=== PATIENT | female | born 1995 | race Caucasian/White ===

== ENCOUNTER 2018-12-06 03:19 | Emergency (ER) | payer OTHER ==
[2018-12-06] MEDS ORDERED: MAG HYDROX/AL HYDROX/SIMETH 30 ML, HYOSCYAMINE ELIXIR 10 ML, CIMETIDINE HCL 300 MG, LID... PO STA ×4 (03:47)
--- NOTE | 2018-12-06 03:52 | ED ---
Abdominal Pain HPI - General Source: patient Mode of arrival: ambulatory Limitations: no limitations - History of Present Illness MD Complaint: abdominal pain Onset/Timin -: hour(s) Location: epigastric Radiation: none Migration to: no migration Severity: moderate Quality: burning Consistency: constant Improves With: nothing Worsens With: nothing Associated Symptoms: denies other symptoms - Related Data LMP (females 10-50): 1 month Patient : No <Aristides Mckeon - Last Filed: 12/06/18 05:01> <Gideon Kumar - Last Filed: 12/06/18 08:08> - General Chief Complaint: Abdominal Pain Stated Complaint: abd pain Time Seen by Provider: 12/06/18 03:28 - History of Present Illness Initial Comments: This patient is 23-year-old woman who presents to be evaluated for upper abdominal pain. She states that it came on around 10 PM. She describes as a burning, constant type of pain. She has not noted worsening or relieving fact ors. She rates it moderate intensity. Patient does note that she had some apple cider vinegar to drink around 7 PM. Patient does note that she had a little bit of nausea and so she tried inducing emesis. After vomiting she had not noted any real change in how she felt. (Aristides Mckeon) - Related Data Home Medications Medication Instructions Recorded Confirmed No Known Home Medications 12/06/18 12/06/18 Allergies Allergy/AdvReac Type Severity Reaction Status Date / Time No Known Allergies Allergy Verified 12/06/18 03:29 Review of Systems ROS Other: All systems not noted in ROS Statement are negative. Constitutional: Denies: fever, chills Respiratory: Denies: cough, dyspnea Cardiovascular: Denies: chest pain, palpitations, edema Gastrointestinal: Reports: abdominal pain. Denies: nausea, vomiting, diarrhea, constipation, melena, hematochezia Genitourinary: Denies: dysuria, hematuria, abnormal menses Musculoskeletal: Denies: back pain Skin: Denies: rash Neurological: Denies: headache <Aristides Mckeon - Last Filed: 12/06/18 05:01> ROS Other: All systems not noted in ROS Statement are negative. <Gideon Kumar - Last Filed: 12/06/18 08:08> ROS Statement: Those systems with pertinent positive or pertinent negative responses have been documented in the HPI. Past Medical History Past Medical History: No Reported History History of Any Multi-Drug Resistant Organisms: None Reported Past Surgical History: No Surgical Hx Reported Past Psychological History: No Psychological Hx Reported Smoking Status: Current some day smoker Past Alcohol Use History: Occasional Past Drug Use History: None Reported <Aristides Mckeon - Last Filed: 12/06/18 05:01> General Exam Limitations: no limitations General appearance: alert, in no apparent distress Head exam: Present: atraumatic, normocephalic Eye exam: Present: normal appearance. Absent: scleral icterus, conjunctival injection ENT exam: Present: normal oropharynx Neck exam: Present: normal inspection Respiratory exam: Present: normal lung sounds bilaterally. Absent: respiratory distress, wheezes, rales, rhonchi, stridor Cardiovascular Exam: Present: regular rate, normal rhythm, normal heart sounds. Absent: systolic murmur, diastolic murmur, rubs, gallop GI/Abdominal exam: Present: soft, normal bowel sounds. Absent: distended, tenderness, guarding, rebound, rigid, mass, pulsatile mass, hernia Extremities exam: Present: normal inspection, normal capillary refill. Absent: pedal edema, calf tenderness Back exam: Present: normal inspection. Absent: CVA tenderness (R), CVA tenderness (L) Neurological exam: Present: alert Skin exam: Present: warm, dry, intact, normal color. Absent: rash <Aristides Mckeon - Last Filed: 12/06/18 05:01> Course Vital Signs 12/06/18 12/06/18 12/06/18 03:25 05:19 07:06 Temperature 98.0 F 97.8 F 98.3 F Pulse Rate 88 100 88 Respiratory 20 18 18 Rate Blood Pressure 115/77 92/65 117/78 O2 Sat by Pulse 99 100 100 Oximetry Medical Decision Making - Lab Data Result diagrams: 12/06/18 04:03 12/06/18 04:03 <Aristides Mckeon - Last Filed: 12/06/18 05:01> - Lab Data Result diagrams: 12/06/18 04:03 12/06/18 04:03 <Gideon Kumar - Last Filed: 12/06/18 08:08> - Medical Decision Making I will back into the room to reevaluate the patient she was sleeping woke her up I repalpated her abdomen I found no area of tenderness. Patient states she started having pain after she drank some apple cider vinegar and followed that with a glass of wine last night. (Gideon Kumar) - Lab Data Lab Results 12/06/18 12/06/18 12/06/18 Range/Units 03:47 03:47 04:03 WBC (3.8-10.6) k/uL RBC (3.80-5.40) m/uL Hgb (11.4-16.0) gm/dL Hct (34.0-46.0) % MCV (80.0-100.0) fL MCH (25.0-35.0) pg MCHC (31.0-37.0) g/dL RDW (11.5-15.5) % Plt Count (150-450) k/uL Neutrophils % % Lymphocytes % % Monocytes % % Eosinophils % % Basophils % % Neutrophils # (1.3-7.7) k/uL Lymphocytes # (1.0-4.8) k/uL Monocytes # (0-1.0) k/uL Eosinophils # (0-0.7) k/uL Basophils # (0-0.2) k/uL Sodium 136 L (137-145) mmol/L Potassium 4.2 (3.5-5.1) mmol/L Chloride 102 (98-107) mmol/L Carbon Dioxide 26 (22-30) mmol/L Anion Gap 8 mmol/L BUN 12 (7-17) mg/dL Creatinine 0.47 L (0.52-1.04) mg/dL Est GFR (CKD-EPI)AfAm >90 (>60 ml/min/1.73 sqM) Est GFR (CKD-EPI)NonAf >90 (>60 ml/min/1.73 sqM) Glucose 116 H (74-99) mg/dL Calcium 9.7 (8.4-10.2) mg/dL Total Bilirubin 0.5 (0.2-1.3) mg/dL AST 35 (14-36) U/L ALT 40 (9-52) U/L Alkaline Phosphatase 65 (38-126) U/L Total Protein 7.3 (6.3-8.2) g/dL Albumin 4.5 (3.5-5.0) g/dL Amylase 56 (30-110) U/L Lipase 46 (23-300) U/L Urine Color Yellow Urine Appearance Turbid H (Clear) Urine pH 7.5 (5.0-8.0) Ur Specific [place] 1.020 (1.001-1.035) Urine Protein Negative (Negative) Urine Glucose (UA) Negative (Negative) Urine Ketones 1+ H (Negative) Urine Blood Negative (Negative) Urine Nitrite Negative (Negative) Urine Bilirubin Negative (Negative) Urine Urobilinogen <2.0 (<2.0) mg/dL Ur Leukocyte Esterase Moderate H (Negative) Urine WBC 6 H (0-5) /hpf Ur Squamous Epith Cells 7 H (0-4) /hpf Amorphous Sediment Rare H (None) /hpf Urine Bacteria Occasional H (None) /hpf Urine Mucus Rare H (None) /hpf Urine HCG, Qual Not Detected (Not Detectd) 12/06/18 Range/Units 04:03 WBC 10.6 (3.8-10.6) k/uL RBC 4.36 (3.80-5.40) m/uL Hgb 13.6 (11.4-16.0) gm/dL Hct 39.9 (34.0-46.0) % MCV 91.5 (80.0-100.0) fL MCH 31.1 (25.0-35.0) pg MCHC 34.0 (31.0-37.0) g/dL RDW 12.4 (11.5-15.5) % Plt Count 232 (150-450) k/uL Neutrophils % 82 % Lymphocytes % 14 % Monocytes % 3 % Eosinophils % 0 % Basophils % 0 % Neutrophils # 8.6 H (1.3-7.7) k/uL Lymphocytes # 1.5 (1.0-4.8) k/uL Monocytes # 0.3 (0-1.0) k/uL Eosinophils # 0.0 (0-0.7) k/uL Basophils # 0.0 (0-0.2) k/uL Sodium (137-145) mmol/L Potassium (3.5-5.1) mmol/L Chloride (98-107) mmol/L Carbon Dioxide (22-30) mmol/L Anion Gap mmol/L BUN (7-17) mg/dL Creatinine (0.52-1.04) mg/dL Est GFR (CKD-EPI)AfAm (>60 ml/min/1.73 sqM) Est GFR (CKD-EPI)NonAf (>60 ml/min/1.73 sqM) Glucose (74-99) mg/dL Calcium (8.4-10.2) mg/dL Total Bilirubin (0.2-1.3) mg/dL AST (14-36) U/L ALT (9-52) U/L Alkaline Phosphatase (38-126) U/L Total Protein (6.3-8.2) g/dL Albumin (3.5-5.0) g/dL Amylase (30-110) U/L Lipase (23-300) U/L Urine Color Urine Appearance (Clear) Urine pH (5.0-8.0) Ur Specific [place] (1.001-1.035) Urine Protein (Negative) Urine Glucose (UA) (Negative) Urine Ketones (Negative) Urine Blood (Negative) Urine Nitrite (Negative) Urine Bilirubin (Negative) Urine Urobilinogen (<2.0) mg/dL Ur Leukocyte Esterase (Negative) Urine WBC (0-5) /hpf Ur Squamous Epith Cells (0-4) /hpf Amorphous Sediment (None) /hpf Urine Bacteria (None) /hpf Urine Mucus (None) /hpf Urine HCG, Qual (Not Detectd) Disposition <Aristides Mckeon - Last Filed: 12/06/18 05:01> Is patient prescribed a controlled substance at d/c from ED?: No Time of Disposition: 08:08 <Gideon Kumar - Last Filed: 12/06/18 08:08> Clinical Impression: Gastritis Disposition: HOME SELF-CARE Condition: Good Instructions (If sedation given, give patient instructions): Gastritis (ED) Additional Instructions: If patient has continued upset stomach she should try some Maalox or possibly Pepcid but neither medication follow-up with her primary medical care doctor. Referrals: Felix Lackey DO [Primary Care Provider] - 1-2 days
[2018-12-06 03:59] LABS: Amorphous Sediment,Urine Rare /hpf; Appearance,Urine Turbid (Clear); Bacteria,Urine Occasional /hpf; Bilirubin,Urine Negative (Negative); Blood,Urine Negative (Negative); Color,Urine Yellow; Glucose,Urine (UA) Negative (Negative); Ketones,Urine 1+ (Negative); Leukocyte Esterase,Urine Moderate (Negative); Mucus,Urine Rare /hpf; Nitrite,Urine Negative (Negative); PH, Urine 7.5 (5.0-8.0); Protein,Urine Negative (Negative); Squamous Epithelial Cell,Urine 7 /hpf (0-4); Urobilinogen,Urine <2.0 mg/dL (<2.0); WBC,Urine 6 /hpf (0-5)
[2018-12-06 04:16] LABS: Basophils % (A) 0 %; Eosinophils % (A) 0 %; HCT 39.9 % (34.0-46.0); HGB 13.6 gm/dL (11.4-16.0); Lymphocytes # (A) 1.5 k/uL (1.0-4.8); Lymphocytes % (A) 14 %; MCH 31.1 pg (25.0-35.0); MCV 91.5 fL (80.0-100.0); Mean Platelet Volume 6.3; Monocytes # (A) 0.3 k/uL (0-1.0); Monocytes % (A) 3 %; Neutrophils # (A) 8.6 k/uL (1.3-7.7); Neutrophils % (A) 82 %; Platelet Count 232 k/uL (150-450); RBC 4.36 m/uL (3.80-5.40); RDW 12.4 % (11.5-15.5); WBC 10.6 k/uL (3.8-10.6)
[2018-12-06 04:29] LABS: Albumin 4.5 g/dL (3.5-5.0); Amylase 56 U/L (30-110); Chloride 102 mmol/L (98-107); Glucose 116 mg/dL (74-99); Total Protein 7.3 g/dL (6.3-8.2)
[2018-12-06 04:30] LABS: ALT 40 U/L (9-52); AST 35 U/L (14-36); African American GFR (CKD) >90 (>60 ml/min/1.73 sqM); Alkaline Phosphatase 65 U/L (38-126); Anion Gap 8 mmol/L; Blood Urea Nitrogen 12 mg/dL (7-17); Calcium 9.7 mg/dL (8.4-10.2); Carbon Dioxide 26 mmol/L (22-30); Potassium 4.2 mmol/L (3.5-5.1); Sodium 136 mmol/L (137-145); Total Bilirubin 0.5 mg/dL (0.2-1.3)
[2018-12-06] MEDS ORDERED: ONDANSETRON 4 MG/2 ML VIAL IVP STA (05:03)
[2018-12-06] MEDS ORDERED: SODIUM CHLORIDE 0.9% 500 ML 500 ML IV STA (05:03)
[2018-12-06] MEDS ORDERED: FAMOTIDINE 20 MG/2 ML VIAL IV STA (05:03)
[2018-12-06 05:21] VITALS: RESP 18
[2018-12-06] MEDS ORDERED: MORPHINE SULFATE 4 MG/ML SYRINGE IV STA (05:54)
--- NOTE | 2018-12-06 07:53 | CT ---
INDICATION: Abdominal pain TECHNIQUE: CT acquisition is performed through the abdomen and pelvis. Sagittal and coronal reformatted images are provided. No IV contrast is administered. DOSE INFORMATION: DLP 332.9 mGy-cm. This CT exam was performed using one or more of the following dose reduction techniques: automated exposure control, adjustment of the mA and/or kV according to patient size, and/or use of iterative reconstruction technique. COMPARISON: None. FINDINGS: The lung bases are clear. The unenhanced appearance of the liver, gallbladder, spleen, pancreas, and adrenal glands is unremarkable. The appendix is mildly enlarged measuring 7.5 mm (series 201, image 58). There are no significant periappendiceal inflammatory changes. There is no evidence of small or large bowel obstruction. Aorta and IVC are normal. There is no adenopathy. The urinary bladder and uterus are unremarkable. There is mild free pelvic fluid, most likely physiologic. There are no acute osseous findings. IMPRESSION: 1. Mildly enlarged appendix measuring 7.5 mm without significant periappendiceal fat stranding. Acute appendicitis is considered unlikely based on this appearance. However, in the appropriate clinical setting, early acute appendicitis is not excluded. 2. Mild free pelvic fluid, likely physiologic. <MYCVCSECTION> Critical Value Communications 12/06/18 07:55 Call Doctor Regarding Other, called Dr. uKmar on 12/06 07: 58 (-04:00)
[2018-12-06 08:21] VITALS: BP 116/79; PULSE 72; TEMP 98.8
== END 2018-12-06 08:19 | disposition home or self-care (01) ==
LOC: EC 03:19
DX: K29.70 Gastritis, unspecified, without bleeding (principal); F17.200 Nicotine dependence, unspecified, uncomplicated
CPT/HCPCS: 99284; 96374; 96375 ×2; 36415; 80053; 82150; 83690; 85025; 81001; 81025; 74176; J2270; J2405

== ENCOUNTER 2019-08-19 19:20 | Inpatient (IN) | payer OTHER ==
[2019-08-19] MEDS ORDERED: OXYTOCIN 10 UNIT/ML 1 ML VIAL IM PRN (20:28)
[2019-08-19] MEDS ORDERED: LIDOCAINE 0.5% (PF) 5 MG/ML (50 ML SDV) SQ PRN (20:28)
[2019-08-19] MEDS ORDERED: PENICILLIN G POTASSIUM 5,000,000 UNIT in DEXTROSE 5% IN WATER 100 ML IVPB STA ×2 (20:28)
[2019-08-19] MEDS ORDERED: CARBOPROST TROMETHAMINE 250 MCG/ML 1 ML AMP IM PRN (20:28)
[2019-08-19] MEDS ORDERED: TERBUTALINE 1 MG/ML VIAL SQ PRN (20:28)
[2019-08-19] MEDS ORDERED: METHYLERGONOVINE 0.2 MG/ML 1 ML AMP IM PRN (20:28)
[2019-08-19] MEDS: LACTATED RINGERS 1,000 ML IV SCH (20:55)
--- NOTE | 2019-08-19 21:36 | P.HPOB ---
History of Present Illness H&P Date: 08/19/19 Chief Complaint: My water broke at 5:00 tonight. This is a 23-year-old white female 1 para 0 EDC 08/28/2019 at 38-5/7 weeks' gestation. Patient presents to labor and delivery with the complaint of her water breaking at 5 PM. Fluid was clear. She is having very mild irregular menstrual type cramping at this time. She denies vaginal bleeding. Fetus is been active throughout the . Past medical history is significant for positive HSV, on Valtrex daily. She denies any lesions or prodrome at this time. She also has a history of psoriasis. history is significant for blood type A+, rubella status immune. Gonorrhea and chlamydia cultures, urine culture, hepatitis B surface antigen, HIV testing all negative. One-hour Glucola 138. Group B strep cultures positive. Past surgical history is negative. Current medications vitamins daily, Valtrex 500 mg daily ALLERGIES none known. Family history significant for cervical cancer. Social history patient is single, she is a former tobacco and 18 smoker. She denies alcohol or drug use. On exam patient is 5 foot, 160 pounds, blood pressure 125/88. Vital signs are otherwise stable and she is afebrile. The general physical exam is within normal limits. The chest is clear in all ferrer. Extremities reveal no edema. Cervix is 1 cm dilated, 90% effaced, -2 station, posterior, vertex. Positive amnio sure testing is noted. heart rate is consistent with reactive NST. Impression: 38-5/7 weeks intrauterine , spontaneous amniorrhexis at home. All signs reassuring. History of positive HSV with no prodrome or lesions at this time. Positive group B strep cultures noted. Impression: Continue close maternal and surveillance. Penicillin G prophylaxis per hospital protocol. Consider oxytocin augmentation and/or analgesia pending clinical progress. Anticipate normal spontaneous vaginal delivery. Review of Systems Constitutional: Reports as per HPI Past Medical History Past Medical History: No Reported History History of Any Multi-Drug Resistant Organisms: None Reported Past Surgical History: No Surgical Hx Reported Past Anesthesia/Blood Transfusion Reactions: No Reported Reaction Past Psychological History: No Psychological Hx Reported Smoking Status: Never smoker Past Alcohol Use History: Occasional Past Drug Use History: None Reported Medications and Allergies Home Medications Medication Instructions Recorded Confirmed Type Fluconazole [Diflucan] 150 mg ONCE 08/19/19 08/19/19 History Pnv No.95/Ferrous Fum/Folic AC 1 each PO DAILY 08/19/19 08/19/19 History [ Multivitamin Tablet] valACYclovir HCL [Valtrex] 500 mg PO DAILY 08/19/19 08/19/19 History Allergies Allergy/AdvReac Type Severity Reaction Status Date / Time No Known Allergies Allergy Verified 08/19/19 19:34 Exam Vital Signs Temp Pulse Resp BP Pulse Ox 08/19/19 20:00 97.9 F 84 15 125/88 98 Intake and Output 08/19/19 08/19/19 08/19/19 06:59 14:59 22:59 Intake Total 125 Balance 125 Intake: IV 125 Other: # Voids 1 Weight 72.575 kg See dictation under HPI please Assessment and Plan Assessment: 38-5/7 weeks intrauterine , spontaneous amniorrhexis at home. Positive group B strep cultures noted. History of HSV with no current lesions or prodrome, on Valtrex prophylactically once daily. Plan: Penicillin G per hospital protocol. Consider oxytocin and or analgesia pending clinical progress through the night. Anticipate normal spontaneous vaginal delivery. Time with Patient: Less than 30
[2019-08-19 23:04] LABS: Basophils % (A) 0 %; Eosinophils # (A) 0.1 k/uL (0-0.7); Eosinophils % (A) 1 %; HCT 36.7 % (34.0-46.0); HGB 12.2 gm/dL (11.4-16.0); Lymphocytes # (A) 3.2 k/uL (1.0-4.8); Lymphocytes % (A) 24 %; MCH 30.8 pg (25.0-35.0); MCHC 33.2 g/dL (31.0-37.0); MCV 92.9 fL (80.0-100.0); Mean Platelet Volume 9.7; Monocytes # (A) 0.8 k/uL (0-1.0); Monocytes % (A) 6 %; Neutrophils # (A) 8.8 k/uL (1.3-7.7); Neutrophils % (A) 67 %; Platelet Count 197 k/uL (150-450); RBC 3.95 m/uL (3.80-5.40); RDW 13.5 % (11.5-15.5); WBC 13.2 k/uL (3.8-10.6)
[2019-08-20] MEDS: PENICILLIN G POTASSIUM 2,500,000 UNIT in DEXTROSE 5% IN WATER 100 ML IVPB SCH ×8 (00:39→16:21)
[2019-08-20] MEDS: BUTORPHANOL 1 MG/ML 1 ML VIAL IV PRN ×2 (00:45→03:16)
[2019-08-20] MEDS: LACTATED RINGERS 1,000 ML IV SCH ×2 (04:51→06:29)
[2019-08-20] MEDS ORDERED: fentaNYL (PF) 50 MCG/ML 5 ML AMP ONE (05:50)
[2019-08-20] MEDS ORDERED: SODIUM CHLORIDE 0.9% 100 ML BAG ONE (05:50)
[2019-08-20] MEDS ORDERED: ROPIVACAINE 5MG/ML 20ML VIAL ONE (05:50)
[2019-08-20] MEDS ORDERED: OXYTOCIN 30 UNITS/500 ML NS 30 UNIT in SALINE 1 500ML.BAG IV SCH (07:15)
[2019-08-20] MEDS ORDERED: diphenhydrAMINE 50 MG/ML 1 ML VIAL IVP PRN ×2 (13:22)
[2019-08-20] MEDS ORDERED: SIMETHICONE 80 MG CHEWABLE PO PRN (13:22)
[2019-08-20] MEDS ORDERED: diphenhydrAMINE 25 MG CAP PO PRN (13:22)
[2019-08-20] MEDS ORDERED: ZOLPIDEM 5 MG TAB PO PRN (13:22)
[2019-08-20] MEDS ORDERED: LANOLIN CREAM 5 GM TUBE TOPICAL PRN (13:22)
[2019-08-20] MEDS ORDERED: ACETAMINOPHEN TAB 325 MG TAB PO PRN (13:22)
[2019-08-20] MEDS ORDERED: diphenhydrAMINE 50 MG CAP PO PRN (13:22)
[2019-08-20] MEDS ORDERED: BENZOCAINE/MENTHOL SPRAY 1 GM/SPRAY AEROSOL TOPICAL PRN (13:22)
[2019-08-20] MEDS ORDERED: HYDROcodone/APAP 5-325MG 1 EACH TAB PO PRN (13:22)
[2019-08-20] MEDS ORDERED: HYDROCORTISONE 2.5% RECTAL CREAM 30 GM TUBE RECTAL PRN (13:22)
[2019-08-20] MEDS ORDERED: WITCH HAZEL 1 EACH MED..PAD TOPICAL PRN (13:22)
--- NOTE | 2019-08-20 13:25 | P.PROBDLV ---
Vaginal Delivery Note - . Vaginal Delivery Note: This is a 23-year-old 1 para 0 at 38-6/7 weeks that presented to labor and delivery last evening with complaints of rupture of membranes around 1700. Patient stated fluid was clear in nature. Patient was admitted to labor and delivery irregular contractions were noted therefore Pitocin augmentation of labor was begun this morning. Patient was uncomfortable at that time and also requested epidural placement. Epidural was placed without difficulty by the a nesthesia department. Patient progressed to complete and had a normal spontaneous vaginal delivery of a viable male infant at 1300, right compound hand was noted. After two-minute delayed the umbo cord was doubly clamped and cut infant was handed to the maternal abdomen. The placenta was then delivered spontaneously intact with three-vessel cord being noted. On inspection the patient's vaginal vault a midline second-degree laceration was noted this was repaired in usual fashion with 3-0 Rapide. Rectal exam was performed after the repair was completed and found to be normal in nature. The uterus was noted to be firm and below the umbilicus, lochia was minimal at that time. Estimated blood loss 200 mL patient and tolerated delivery well and are resting comfortably.
[2019-08-20] MEDS ORDERED: OXYTOCIN 20 UNITS/1000 ML NS 1,000 ML IV SCH (13:30)
[2019-08-20] MEDS: IBUPROFEN 600 MG TAB PO PRN ×2 (15:14→21:02)
[2019-08-20] MEDS: SENNOSIDES-DOCUSATE SODIUM 1 EACH TAB PO SCH (20:29)
[2019-08-21] MEDS: IBUPROFEN 600 MG TAB PO PRN ×4 (03:55→17:10)
[2019-08-21 06:01] LABS: Basophils % (A) 0 %; Eosinophils # (A) 0.1 k/uL (0-0.7); Eosinophils % (A) 0 %; HCT 29.4 % (34.0-46.0); Lymphocytes # (A) 3.1 k/uL (1.0-4.8); Lymphocytes % (A) 19 %; MCH 31.8 pg (25.0-35.0); MCHC 33.5 g/dL (31.0-37.0); MCV 94.8 fL (80.0-100.0); Mean Platelet Volume 9.1; Monocytes # (A) 0.7 k/uL (0-1.0); Monocytes % (A) 4 %; Neutrophils # (A) 12.3 k/uL (1.3-7.7); Neutrophils % (A) 75 %; Platelet Count 166 k/uL (150-450); RBC 3.11 m/uL (3.80-5.40); RDW 14.1 % (11.5-15.5); WBC 16.4 k/uL (3.8-10.6)
[2019-08-21 06:03] LABS: HGB 9.9 gm/dL (11.4-16.0)
--- NOTE | 2019-08-21 08:16 | P.PNOBGVD ---
Subjective - Subjective Principal diagnosis: PPD 1 Interval history: Patient did well overnight. She is ambulating and voiding without difficulty. She is tolerating a regular diet without nausea or vomiting. She is breast- feeding with some difficulty. She states her lochia is moderate. She notes her pain to be well-controlled with oral ibuprofen. Patient reports: Reports appetite normal, Reports voiding normally, Reports pain well controlled, Reports ambulating normally : doing well, nursing well Objective - Latest Vital Signs Latest vital signs: Vital Signs Temp Pulse Pulse Resp BP Pulse Ox 08/21/19 00:00 98.5 F 87 18 123/79 97 08/20/19 20:00 99.1 F 91 18 138/80 98 08/20/19 15:10 87 16 120/77 08/20/19 14:40 98.0 F 86 16 122/66 08/20/19 14:10 16 08/20/19 13:55 89 16 140/69 08/20/19 13:40 95 16 109/72 08/20/19 13:25 97.8 F 99 16 123/58 08/20/19 13:10 93 16 140/69 Intake and Output 08/20/19 08/21/19 08/21/19 22:59 06:59 14:59 Output Total 200 Balance -200 Output: Estimated Blood Loss 200 Other: # Voids 1 2 - Exam Extremities: Present: normal, edema Abdomen: Present: normal appearance - Labs Labs: Abnormal Lab Results - Last 24 Hours (Table) 08/21/19 Range/Units 05:18 WBC 16.4 H (3.8-10.6) k/uL RBC 3.11 L (3.80-5.40) m/uL Hgb 9.9 L D (11.4-16.0) gm/dL Hct 29.4 L (34.0-46.0) % Neutrophils # 12.3 H (1.3-7.7) k/uL Assessment and Plan (1) Term Current Visit: Yes Status: Acute Code(s): Z34.90 - ENCNTR FOR SUPRVSN OF NORMAL , UNSP, UNSP TRIMESTER SNOMED Code(s): 13049412 (2) Positive GBS test Current Visit: Yes Status: Acute Code(s): B95.1 - STREPTOCOCCUS, GROUP B, CAUSING DISEASES CLASSD ELSWHR SNOMED Code(s): 429301290 (3) Status post vaginal delivery Current Visit: Yes Status: Acute Code(s): UPM1321 - SNOMED Code(s): 300692241 (4) Second degree perineal laceration Current Visit: Yes Status: Acute Code(s): O70.1 - SECOND DEGREE PERINEAL LACERATION DURING DELIVERY SNOMED Code(s): 6477650 (5) Prolonged rupture of membranes Current Visit: Yes Status: Acute Code(s): O42.90 - TREVER ROM, 7TH0 BETW RUPT & ONST LABR, UNSP WEEKS OF GEST SNOMED Code(s): 18294248 (6) Anemia Narrative/Plan: gestational Current Visit: Yes Status: Acute Code(s): D64.9 - ANEMIA, UNSPECIFIED SNOMED Code(s): 577904296 Plan: We'll continue routine care today, anticipate discharge home tomorrow.
[2019-08-21] MEDS: SENNOSIDES-DOCUSATE SODIUM 1 EACH TAB PO SCH ×2 (09:51→20:11)
[2019-08-21] MEDS: PRENATAL VIT-IRON-FOLIC ACID 1 EACH CAP PO SCH (10:00)
[2019-08-22] MEDS: IBUPROFEN 600 MG TAB PO PRN ×2 (00:10→07:52)
--- NOTE | 2019-08-22 08:22 | P.DS ---
Providers Date of admission: 08/19/19 20:11 Expected date of discharge: 08/22/19 Attending physician: Doris Bustamante Primary care physician: Stated None - Discharge Diagnosis(es) (1) Term Current Visit: Yes Status: Acute (2) Positive GBS test Current Visit: Yes Status: Acute (3) Status post vaginal delivery Current Visit: Yes Status: Acute (4) Second degree perineal laceration Current Visit: Yes Status: Acute (5) Prolonged rupture of membranes Current Visit: Yes Status: Acute (6) Anemia Current Visit: Yes Status: Acute Hospital Course: This is a pleasant 23-year-old 1 para 0 at 38-6/7 weeks with an estimated due date of 08/28/19. Patient presented to the hospital on 08/18 with complaints of spontaneous rupture of membranes. Patient noted the fluid to be clear in nature. Patient had been receiving routine care with myself which has been essentially uncomplicated. Patient did have HSV outbreak during this and was treated with Valtrex from the time of outbreak until delivery. No lesions were noted at the time of admission. Patient was admitted to labor and delivery and after minimal change was noted Pitocin augmentation of labor was begun. Patient became uncomfortable and did request epidural placement. Epidural was placed without difficulty by the anesthesia department. Patient progressed to complete began pushing and had a normal spontaneous vagin al delivery of a viable male infant at 1300 on 08/19. 's weight 7 lbs. 0 oz. with Apgars of 8 and 9 at one and 5 minutes respectively. Patient did sustain a second-degree midline laceration during delivery which was repaired in usual fashion. Patient's course has been uneventful. On this day #2 she is ambulating and voiding without difficulty. She is tolerating a regular diet without nausea or vomiting. She states her pain is well-controlled. She is breast-feeding with some difficulty and supplementing with formula. Patient does wish discharge home today. Patient Condition at Discharge: Good Plan - Discharge Summary New Discharge Prescriptions: No Action Fluconazole [Diflucan] 150 mg ONCE valACYclovir HCL [Valtrex] 500 mg PO DAILY Pnv No.95/Ferrous Fum/Folic AC [ Multivitamin Tablet] 1 each PO DAILY Discharge Medication List Fluconazole [Diflucan] 150 mg ONCE 08/19/19 [History] Pnv No.95/Ferrous Fum/Folic AC [ Multivitamin Tablet] 1 each PO DAILY 08/19/19 [History] valACYclovir HCL [Valtrex] 500 mg PO DAILY 08/19/19 [History] Follow up Appointment(s)/Referral(s): Doris Bustamante DO [Doctor of Osteopathic Medicine] - 4 Weeks Patient Instructions/Handouts: Vaginal Delivery (DC), Vaginal Delivery (GEN) Discharge Disposition: HOME SELF-CARE
[2019-08-22 09:13] VITALS: RESP 18
[2019-08-22] MEDS: SENNOSIDES-DOCUSATE SODIUM 1 EACH TAB PO SCH (09:15)
[2019-08-22] MEDS: PRENATAL VIT-IRON-FOLIC ACID 1 EACH CAP PO SCH (09:49)
[2019-08-22 16:44] VITALS: BP 127/84; PULSE 80; TEMP 98.9
--- NOTE | 2019-08-23 14:55 | CDI ---
Documentation Clarification Form Date: 08/23/19 From: Ritika Waldrop CCS Phone: If you have a question about this query, please contact Saray Guillaume, [employer]er T[employer]er at [phone] between 8am and 5pm. Admit Date: 08/19/19 Discharge Date:08/22/19 Patient Name: Sushila Silva Visit Number: [id number] ATTENTION: The Clinical Documentation Specialists (CDI) and [facility] Coding Staff appreciate your assistance in clarifying documentation. Please respond to the clarification below the line at the bottom and electronically sign. The CDI & [facility] Coding staff will review the response and follow-up if needed. Please note: Queries are made part of the Legal Health Record. If you have any questions, please contact the author of this message via ITS. Dear Dr. Bustamante, Anemia is documented in the PN, DS . History/Risk Factors: S/P Vaginal delivery Clinical indicators: Estimated Blood Loss 200 ml Hemoglobin: 9.9 Hematocrit: 29.4 Treatment: Vit- Iron-FolicAcid In order to capture the severity of condition, please clarify the type of anemia and etiology if known:. Acute blood loss anemia Acute on chronic blood loss anemia Chronic blood loss anemia Iron deficiency anemia Nutritional anemia Unable to determine Other, please specify acute blood loss anemia on chronic MTDD
== END 2019-08-22 17:19 | disposition home or self-care (01) | DRG 806 ==
LOC: FBPOP 19:20 → 4FBP 20:11
PROVIDERS: ADMIT Obstetrics & Gynecology; ATTEND Obstetrics & Gynecology Obstetrics
PROC: 10E0XZZ Delivery of Products of Conception, External Approach (ICD-10-PCS; principal; 2019-08-20)
PROC: 0KQM0ZZ Repair Perineum Muscle, Open Approach (ICD-10-PCS; 2019-08-20)
PROC: 3E0R3BZ Introduction of Anesthetic Agent into Spinal Canal, Percutaneous Approach (ICD-10-PCS; 2019-08-20)
DX: O42.02 Full-term premature rupture of membranes, onset of labor within 24 hours of rupture (principal); O98.52 Other viral diseases complicating childbirth; Z37.0 Single live birth; D62 Acute posthemorrhagic anemia; B00.9 Herpesviral infection, unspecified; Z11.59 Encounter for screening for other viral diseases; O99.72 Diseases of the skin and subcutaneous tissue complicating childbirth; L40.9 Psoriasis, unspecified; O99.824 Streptococcus B carrier state complicating childbirth; O70.1 Second degree perineal laceration during delivery; D64.9 Anemia, unspecified; O90.81 Anemia of the puerperium; Z3A.38 38 weeks gestation of pregnancy; Z79.899 Other long term (current) drug therapy; Z87.891 Personal history of nicotine dependence; Z80.49 Family history of malignant neoplasm of other genital organs
CPT/HCPCS: 59025; 84112; 85025; 86850; 86900; 86901; 87635; 88307; 99213

== ENCOUNTER → 2019-08-19 | Outpatient (CLI) | payer OTHER | END | disposition home or self-care (01) | LOC: LABWHC1 11:43 | PROVIDERS: ATTEND Obstetrics & Gynecology Obstetrics | DX: Z11.59 Encounter for screening for other viral diseases (principal) | CPT/HCPCS: 87635 ==

== ENCOUNTER 2021-11-13 00:13 | Emergency (ER) | payer OTHER ==
[2021-11-13 00:18] VITALS: TEMP 98.2
[2021-11-13] MEDS ORDERED: SODIUM CHLORIDE 0.9% 1,000 ML IV STA (00:35)
[2021-11-13] MEDS ORDERED: ONDANSETRON 4 MG/2 ML VIAL IVP STA (00:36)
--- NOTE | 2021-11-13 00:39 | ED ---
General Adult HPI - General Chief complaint: Chest Pain Stated complaint: palpatations, shaking Time Seen by Provider: 11/13/21 00:21 Source: patient, family, RN notes reviewed, old records reviewed Mode of arrival: ambulatory Limitations: no limitations - History of Present Illness Initial comments: This is a well-appearing 25-year-old female that presents to the emergency room with palpitations and a tingling sensation in her chest that started about an hour ago while watching TV. Patient states denies fevers or cough, she does have nausea but no vomiting. She states that she does vape and did smoke THC which she normally does in the evening. She is on control. She has a history of anxiety and depression and was placed on Lexapro 2 days ago by her PCP. -: hour(s) (1) Location: chest Radiation: non-radiation Severity scale (1-10): 0 Consistency: now resolved Improves with: none Associated Symptoms: chest pain, nausea/vomiting (no vomiting), other (palpitat ions) - Related Data Home Medications Medication Instructions Recorded Confirmed Fluconazole [Diflucan] 150 mg ONCE 08/19/19 08/19/19 Pnv No.95/Ferrous Fum/Folic AC 1 each PO DAILY 08/19/19 08/19/19 [ Multivitamin Tablet] valACYclovir HCL [Valtrex] 500 mg PO DAILY 08/19/19 08/19/19 Allergies Allergy/AdvReac Type Severity Reaction Status Date / Time No Known Allergies Allergy Verified 11/13/21 00:17 Review of Systems ROS Statement: Those systems with pertinent positive or pertinent negative responses have been documented in the HPI. ROS Other: All systems not noted in ROS Statement are negative. Past Medical History Past Medical History: No Reported History Additional Past Medical History / Comment(s): depression and anxiety History of Any Multi-Drug Resistant Organisms: None Reported Past Surgical History: No Surgical Hx Reported Past Anesthesia/Blood Transfusion Reactions: No Reported Reaction Past Psychological History: Anxiety, Depression Smoking Status: Vaper Past Alcohol Use History: Occasional Past Drug Use History: Marijuana General Exam Limitations: no limitations General appearance: alert, in no apparent distress Head exam: Present: atraumatic, normocephalic Eye exam: Present: normal appearance. Absent: scleral icterus, conjunctival injection Neck exam: Present: full ROM. Absent: tenderness, meningismus Respiratory exam: Present: normal lung sounds bilaterally. Absent: respiratory distress, accessory muscle use Cardiovascular Exam: Present: regular rate, tachycardia GI/Abdominal exam: Present: soft. Absent: distended, tenderness, guarding, rebound, rigid, normal bowel sounds Extremities exam: Present: normal capillary refill. Absent: tenderness, pedal edema, calf tenderness Back exam: Present: normal inspection, full ROM. Absent: tenderness, CVA tenderness (R), CVA tenderness (L) Neurological exam: Present: alert, oriented X3, normal gait Psychiatric exam: Present: normal affect, normal mood Skin exam: Present: warm, dry, normal color. Absent: cyanosis, diaphoretic, petechiae, pallor Course Vital Signs 11/13/21 11/13/21 11/13/21 00:13 00:37 00:40 Temperature 98.2 F Pulse Rate 93 85 87 Respiratory 20 30 H 15 Rate Blood Pressure 141/79 124/72 O2 Sat by Pulse 99 99 Oximetry 11/13/21 11/13/21 11/13/21 00:41 00:50 01:00 Temperature Pulse Rate 87 85 95 Respiratory 15 10 L 19 Rate Blood Pressure 124/72 124/72 124/72 O2 Sat by Pulse 99 98 96 Oximetry 11/13/21 11/13/21 11/13/21 01:10 01:20 01:30 Temperature Pulse Rate 88 92 95 Respiratory 9 L 19 18 Rate Blood Pressure 112/82 112/82 112/82 O2 Sat by Pulse 99 99 98 Oximetry 11/13/21 11/13/21 11/13/21 01:40 01:44 02:10 Temperature Pulse Rate 89 89 87 Respiratory 16 16 18 Rate Blood Pressure 112/82 112/82 115/61 O2 Sat by Pulse 98 98 96 Oximetry EKG Findings - EKG Results: EKG: sinus rhythm EKG shows: tachycardia (Ventricular rate 116, SD interval 0.118, QRS 0.82, QTC 0.379) Medical Decision Making - Medical Decision Making Patient presents with chest tightness and tingling with palpitations while watching TV tonight. She states she just started taking Lexapro 2 days ago for anxiety and depression. She also vapes daily and did have THC tonight. EKG shows sinus rhythm. Troponin is negative at 0.012. Chest x-ray shows normal chest. Hemoglobin and hematocrit are stable there is no evidence of leukocytosis. D-dimer is 0.19. Electrolytes are unremarkable. Vital signs are stable. Patient was given IV fluids and Zofran for nausea. She states she still feels anxious and was given xanax. Her symptoms are likely related to a side effect of Lexapro vs THC use which has worsened her anxiety. She was instructed to stop the medication and follow-up with her primary care doctor next week. Return to the emergency room with the symptoms. She is agreeable to this plan of care. She states that she does still have anxiety however she does have someone who will stay with her tonight at bedside. Case was discussed with Dr. Hassan. - Lab Data Result diagrams: 11/13/21 00:35 11/13/21 00:35 Lab Results 11/13/21 11/13/21 11/13/21 Range/Units 00:35 00:35 00:35 WBC 9.2 (3.8-10.6) k/uL RBC 4.30 (3.80-5.40) m/uL Hgb 13.4 (11.4-16.0) gm/dL Hct 40.7 (34.0-46.0) % MCV 94.6 (80.0-100.0) fL MCH 31.2 (25.0-35.0) pg MCHC 33.0 (31.0-37.0) g/dL RDW 12.6 (11.5-15.5) % Plt Count 349 (150-450) k/uL MPV 6.7 Neutrophils % 50 % Lymphocytes % 44 % Monocytes % 4 % Eosinophils % 1 % Basophils % 1 % Neutrophils # 4.6 (1.3-7.7) k/uL Lymphocytes # 4.0 (1.0-4.8) k/uL Monocytes # 0.3 (0-1.0) k/uL Eosinophils # 0.1 (0-0.7) k/uL Basophils # 0.1 (0-0.2) k/uL D-Dimer 0.19 (<0.60) mg/L FEU Sodium 137 (137-145) mmol/L Potassium 3.7 (3.5-5.1) mmol/L Chloride 103 (98-107) mmol/L Carbon Dioxide 20 L (22-30) mmol/L Anion Gap 14 mmol/L BUN 14 (7-17) mg/dL Creatinine 0.58 (0.52-1.04) mg/dL Est GFR (CKD-EPI)AfAm >90 (>60 ml/min/1.73 sqM) Est GFR (CKD-EPI)NonAf >90 (>60 ml/min/1.73 sqM) Glucose 104 H (74-99) mg/dL Calcium 9.6 (8.4-10.2) mg/dL Magnesium 1.8 (1.6-2.3) mg/dL Total Bilirubin 0.4 (0.2-1.3) mg/dL AST 38 H (14-36) U/L ALT 38 H (4-34) U/L Alkaline Phosphatase 44 (38-126) U/L Troponin I (0.000-0.034) ng/mL Total Protein 7.6 (6.3-8.2) g/dL Albumin 4.6 (3.5-5.0) g/dL Urine Color Urine Appearance (Clear) Urine pH (5.0-8.0) Ur Specific [place] (1.001-1.035) Urine Protein (Negative) Urine Glucose (UA) (Negative) Urine Ketones (Negative) Urine Blood (Negative) Urine Nitrite (Negative) Urine Bilirubin (Negative) Urine Urobilinogen (<2.0) mg/dL Ur Leukocyte Esterase (Negative) Urine HCG, Qual (Not Detectd) 11/13/21 11/13/21 11/13/21 Range/Units 00:35 01:28 01:28 WBC (3.8-10.6) k/uL RBC (3.80-5.40) m/uL Hgb (11.4-16.0) gm/dL Hct (34.0-46.0) % MCV (80.0-100.0) fL MCH (25.0-35.0) pg MCHC (31.0-37.0) g/dL RDW (11.5-15.5) % Plt Count (150-450) k/uL MPV Neutrophils % % Lymphocytes % % Monocytes % % Eosinophils % % Basophils % % Neutrophils # (1.3-7.7) k/uL Lymphocytes # (1.0-4.8) k/uL Monocytes # (0-1.0) k/uL Eosinophils # (0-0.7) k/uL Basophils # (0-0.2) k/uL D-Dimer (<0.60) mg/L FEU Sodium (137-145) mmol/L Potassium (3.5-5.1) mmol/L Chloride (98-107) mmol/L Carbon Dioxide (22-30) mmol/L Anion Gap mmol/L BUN (7-17) mg/dL Creatinine (0.52-1.04) mg/dL Est GFR (CKD-EPI)AfAm (>60 ml/min/1.73 sqM) Est GFR (CKD-EPI)NonAf (>60 ml/min/1.73 sqM) Glucose (74-99) mg/dL Calcium (8.4-10.2) mg/dL Magnesium (1.6-2.3) mg/dL Total Bilirubin (0.2-1.3) mg/dL AST (14-36) U/L ALT (4-34) U/L Alkaline Phosphatase (38-126) U/L Troponin I <0.012 (0.000-0.034) ng/mL Total Protein (6.3-8.2) g/dL Albumin (3.5-5.0) g/dL Urine Color Light Yellow Urine Appearance Clear (Clear) Urine pH 7.0 (5.0-8.0) Ur Specific [place] 1.008 (1.001-1.035) Urine Protein Negative (Negative) Urine Glucose (UA) Negative (Negative) Urine Ketones Negative (Negative) Urine Blood Negative (Negative) Urine Nitrite Negative (Negative) Urine Bilirubin Negative (Negative) Urine Urobilinogen <2.0 (<2.0) mg/dL Ur Leukocyte Esterase Negative (Negative) Urine HCG, Qual Not Detected (Not Detectd) Disposition Clinical Impression: Anxiety Disposition: HOME SELF-CARE Condition: Good Instructions (If sedation given, give patient instructions): Anxiety (ED) Additional Instructions: Stop taking the Lexapro and stop using marijuana. Follow-up with your primary care doctor next week. Return to the emergency room with any new or concerning symptoms. Is patient prescribed a controlled substance at d/c from ED?: No Referrals: Felix Lackey DO [Primary Care Provider] - 1-2 days Time of Disposition: 02:02
[2021-11-13 00:53] LABS: Basophils # (A) 0.1 k/uL (0-0.2); Basophils % (A) 1 %; Eosinophils # (A) 0.1 k/uL (0-0.7); Eosinophils % (A) 1 %; HCT 40.7 % (34.0-46.0); HGB 13.4 gm/dL (11.4-16.0); Lymphocytes % (A) 44 %; MCH 31.2 pg (25.0-35.0); MCV 94.6 fL (80.0-100.0); Mean Platelet Volume 6.7; Monocytes # (A) 0.3 k/uL (0-1.0); Monocytes % (A) 4 %; Neutrophils # (A) 4.6 k/uL (1.3-7.7); Neutrophils % (A) 50 %; Platelet Count 349 k/uL (150-450); RDW 12.6 % (11.5-15.5); WBC 9.2 k/uL (3.8-10.6)
--- NOTE | 2021-11-13 01:03 | XR ---
EXAMINATION TYPE: XR chest 2V DATE OF EXAM: 11/13/2021 COMPARISON: NONE HISTORY: Chest pain TECHNIQUE: 2 views FINDINGS: Heart and mediastinum are normal. Lungs are clear. Diaphragm is normal. Bony thorax appears normal. There are chest leads. IMPRESSION: Normal chest.
[2021-11-13 01:07] LABS: ALT 38 U/L (4-34); AST 38 U/L (14-36); African American GFR (CKD) >90 (>60 ml/min/1.73 sqM); Albumin 4.6 g/dL (3.5-5.0); Alkaline Phosphatase 44 U/L (38-126); Anion Gap 14 mmol/L; Blood Urea Nitrogen 14 mg/dL (7-17); Calcium 9.6 mg/dL (8.4-10.2); Carbon Dioxide 20 mmol/L (22-30); Chloride 103 mmol/L (98-107); Glucose 104 mg/dL (74-99); Magnesium 1.8 mg/dL (1.6-2.3); Non-African American GFR(CKD) >90 (>60 ml/min/1.73 sqM); Potassium 3.7 mmol/L (3.5-5.1); Sodium 137 mmol/L (137-145); Total Bilirubin 0.4 mg/dL (0.2-1.3); Total Protein 7.6 g/dL (6.3-8.2)
[2021-11-13 01:48] LABS: Appearance,Urine Clear (Clear); Bilirubin,Urine Negative (Negative); Blood,Urine Negative (Negative); Color,Urine Light Yellow; Glucose,Urine (UA) Negative (Negative); Ketones,Urine Negative (Negative); Leukocyte Esterase,Urine Negative (Negative); Nitrite,Urine Negative (Negative); Protein,Urine Negative (Negative); Specific Gravity,Urine 1.008 (1.001-1.035); Urobilinogen,Urine <2.0 mg/dL (<2.0)
[2021-11-13] MEDS ORDERED: ALPRAZolam 0.25 MG TAB PO STA (02:00)
[2021-11-13 02:11] VITALS: BP 115/61; PULSE 87; RESP 18
== END 2021-11-13 02:14 | disposition home or self-care (01) ==
LOC: EC 00:13
DX: F41.9 Anxiety disorder, unspecified (principal); F17.209 Nicotine dependence, unspecified, with unspecified nicotine-induced disorders
CPT/HCPCS: 36415; 93005; 85379; 80053; 83735; 84484; 85025; 81003; 81025; 71046; 99285; 96374; 96361; J2405

== ENCOUNTER 2022-03-13 19:50 | Emergency (ER) | payer OTHER ==
[2022-03-13 20:13] VITALS: RESP 16
--- NOTE | 2022-03-13 22:43 | ED ---
General Adult HPI - General Chief complaint: Arrhythmia/Palpitations Stated complaint: sob,chest pain Time Seen by Provider: 03/13/22 22:31 Source: patient, RN notes reviewed Mode of arrival: ambulatory Limitations: no limitations - History of Present Illness Initial comments: This is a pleasant 26-year-old female presents to emergency department stating that for about a week she has had some pain in her back which is exacerbated by breathing. She states that today it seems like it was coming through to the chest. Patient also was complaining of some fluttering heart beats. Patient has a sensation of shortness of breath. Patient states she's had strange chest pains going on for a few months and actually saw her regular physician for this and was told it was anxiety. Note the patient is on oral control pills. Patient also takes Wellbutrin and smokes cigarettes. Patient denying any fever. Denies any constant chest pain. States that the pain is aching in nature and is certainly related to breathing. Patient denying any extremity pain. No abdominal pain. No nausea or vomiting. No changes in balance urination. History of blood clots. Patient states that his cancer in the family. Patient denies any recent surgeries. No recent immobilization. - Related Data Home Medications Medication Instructions Recorded Confirmed Fluconazole [Diflucan] 150 mg ONCE 08/19/19 08/19/19 Pnv No.95/Ferrous Fum/Folic AC 1 each PO DAILY 08/19/19 08/19/19 [ Multivitamin Tablet] valACYclovir HCL [Valtrex] 500 mg PO DAILY 08/19/19 08/19/19 Allergies Allergy/AdvReac Type Severity Reaction Status Date / Time No Known Allergies Allergy Verified 03/13/22 20:11 Review of Systems ROS Statement: Those systems with pertinent positive or pertinent negative responses have been documented in the HPI. ROS Other: All systems not noted in ROS Statement are negative. Past Medical History Past Medical History: No Reported History Additional Past Medical History / Comment(s): depression and anxiety History of Any Multi-Drug Resistant Organisms: None Reported Past Surgical History: No Surgical Hx Reported Past Anesthesia/Blood Transfusion Reactions: No Reported Reaction Past Psychological History: Anxiety, Depression Smoking Status: Vaper Past Alcohol Use History: Occasional Past Drug Use History: Marijuana General Exam - General Exam Comments Initial Comments: Patient in no significant distress. Noted be tachycardic in triage. Pulse oximetry is normal Limitations: no limitations General appearance: alert, in no apparent distress Head exam: Present: atraumatic, normocephalic, normal inspection Eye exam: Present: normal appearance, PERRL, EOMI. Absent: scleral icterus, conjunctival injection, periorbital swelling ENT exam: Present: normal exam, normal oropharynx, mucous membranes moist, normal external ear exam. Absent: mucous membranes dry Neck exam: Present: normal inspection, full ROM. Absent: tenderness, m eningismus, lymphadenopathy Respiratory exam: Present: normal lung sounds bilaterally, chest wall tenderness. Absent: respiratory distress, wheezes, rales, rhonchi, stridor, accessory muscle use, decreased breath sounds, prolonged expiratory Cardiovascular Exam: Present: regular rate, normal rhythm, normal heart sounds. Absent: systolic murmur, diastolic murmur, rubs, gallop, clicks GI/Abdominal exam: Present: soft, normal bowel sounds. Absent: distended, tenderness, guarding, rebound, rigid Extremities exam: Present: normal inspection, full ROM, normal capillary refill. Absent: tenderness, pedal edema, joint swelling, calf tenderness Back exam: Present: normal inspection Neurological exam: Present: alert, oriented X3, CN II-XII intact Psychiatric exam: Present: normal affect, normal mood Skin exam: Present: warm, dry, intact, normal color. Absent: rash Course Vital Signs 03/13/22 03/13/22 20:11 23:00 Temperature 99.2 F 98.4 F Pulse Rate 106 H 98 Respiratory 16 16 Rate Blood Pressure 135/81 126/84 O2 Sat by Pulse 98 100 Oximetry - Reevaluation(s) Reevaluation #1: 03/14/22 01:33 Medical record is reviewed Patient stable, patient in no distress. Patient is informed of results and questions answered Patient in no distress EKG Findings - EKG Comments: EKG Findings:: EKG done at 2044 and interpreted independently by me reveals sinus rhythm with a rate of 92, normal intervals, normal axis, no acute ST or T- wave changes. Normal QRS morphology. Medical Decision Making - Medical Decision Making PERC =2 Differential diagnosis: Pulmonary embolism, chest wall pain, anxiety, pleurisy. Does not appear to be consistent with ischemic pain. Patient's CBC is normal. D-dimer is negative. Troponin negative. EKG nondiagnostic. Chloride 108, glucose 114, remainder of the CMP is unremarkable. Prevacid test negative Discussed all findings with the patient. Discussed treatment plan. Patient has an appointment tomorrow with her primary care physician. Discussed the possibility of further evaluation. Patient can discuss this with her regular physician. Patient was told to return to the ER for any signs or symptoms worsen. Told to return immediately if any other problems arise. All questions answered. Treatment plan discussed. Patient in agreement Every effort has been made to ensure accuracy of this dictation. However, due to the limitations of electronic medical records and dictation devices, errors in charting still occur. The case was discussed in detail with ED attending physician. Presentation, findings, treatment plan discussed in detail. Supervising physician Dr. Galeas - Lab Data Result diagrams: 03/13/22 23:40 03/13/22 23:40 Lab Results 03/13/22 03/13/22 03/13/22 Range/Units 22:34 22:59 23:40 WBC (3.8-10.6) k/uL RBC (3.80-5.40) m/uL Hgb (11.4-16.0) gm/dL Hct (34.0-46.0) % MCV (80.0-100.0) fL MCH (25.0-35.0) pg MCHC (31.0-37.0) g/dL RDW (11.5-15.5) % Plt Count (150-450) k/uL MPV Neutrophils % % Lymphocytes % % Monocytes % % Eosinophils % % Basophils % % Neutrophils # (1.3-7.7) k/uL Lymphocytes # (1.0-4.8) k/uL Monocytes # (0-1.0) k/uL Eosinophils # (0-0.7) k/uL Basophils # (0-0.2) k/uL D-Dimer (<0.60) mg/L FEU Sodium 138 (137-145) mmol/L Potassium 3.8 (3.5-5.1) mmol/L Chloride 108 H (98-107) mmol/L Carbon Dioxide 22 (22-30) mmol/L Anion Gap 8 mmol/L BUN 12 (7-17) mg/dL Creatinine 0.54 (0.52-1.04) mg/dL Est GFR (CKD-EPI)AfAm >90 (>60 ml/min/1.73 sqM) Est GFR (CKD-EPI)NonAf >90 (>60 ml/min/1.73 sqM) Glucose 114 H (74-99) mg/dL Calcium 9.2 (8.4-10.2) mg/dL Magnesium 1.9 (1.6-2.3) mg/dL Total Bilirubin 0.3 (0.2-1.3) mg/dL AST 31 (14-36) U/L ALT 33 (4-34) U/L Alkaline Phosphatase 48 (38-126) U/L Troponin I (0.000-0.034) ng/mL Total Protein 7.0 (6.3-8.2) g/dL Albumin 4.3 (3.5-5.0) g/dL Urine HCG, Qual Not Detected (Not Detectd) Coronavirus (PCR) Not Detected (Not Detectd) 03/13/22 03/13/22 03/13/22 Range/Units 23:40 23:40 23:40 WBC 9.6 (3.8-10.6) k/uL RBC 4.30 (3.80-5.40) m/uL Hgb 14.3 (11.4-16.0) gm/dL Hct 39.5 (34.0-46.0) % MCV 91.8 (80.0-100.0) fL MCH 33.4 (25.0-35.0) pg MCHC 36.3 (31.0-37.0) g/dL RDW 13.0 (11.5-15.5) % Plt Count 251 (150-450) k/uL MPV 7.4 Neutrophils % 69 % Lymphocytes % 25 % Monocytes % 3 % Eosinophils % 1 % Basophils % 1 % Neutrophils # 6.6 (1.3-7.7) k/uL Lymphocytes # 2.4 (1.0-4.8) k/uL Monocytes # 0.3 (0-1.0) k/uL Eosinophils # 0.1 (0-0.7) k/uL Basophils # 0.1 (0-0.2) k/uL D-Dimer 0.21 (<0.60) mg/L FEU Sodium (137-145) mmol/L Potassium (3.5-5.1) mmol/L Chloride (98-107) mmol/L Carbon Dioxide (22-30) mmol/L Anion Gap mmol/L BUN (7-17) mg/dL Creatinine (0.52-1.04) mg/dL Est GFR (CKD-EPI)AfAm (>60 ml/min/1.73 sqM) Est GFR (CKD-EPI)NonAf (>60 ml/min/1.73 sqM) Glucose (74-99) mg/dL Calcium (8.4-10.2) mg/dL Magnesium (1.6-2.3) mg/dL Total Bilirubin (0.2-1.3) mg/dL AST (14-36) U/L ALT (4-34) U/L Alkaline Phosphatase (38-126) U/L Troponin I <0.012 (0.000-0.034) ng/mL Total Protein (6.3-8.2) g/dL Albumin (3.5-5.0) g/dL Urine HCG, Qual (Not Detectd) Coronavirus (PCR) (Not Detectd) - Radiology Data Radiology results: report reviewed, image reviewed Independent interpretation of chest x-ray by me reveals no evidence of acute pathology. Review the radiology interpretation Disposition Clinical Impression: Atypical chest pain, Palpitations, Cigarette smoker Disposition: HOME SELF-CARE Condition: Stable Instructions (If sedation given, give patient instructions): Heart Palpitations (ED), Chest Pain (ED), How to Stop Smoking (ED) Additional Instructions: Follow-up with your regular physician as directed. Return to the ER immediately if any symptoms worsen, new symptoms arise, or any other problems develop. Keep your appointment today with the regular physician as planned. Is patient prescribed a controlled substance at d/c from ED?: No Referrals: Felix Lackey DO [Primary Care Provider] - 03/14/22 8:00 am Time of Disposition: 01:33
--- NOTE | 2022-03-13 23:52 | XR ---
EXAMINATION TYPE: XR chest 2V DATE OF EXAM: 03/13/2022 COMPARISON: 11/13/2021 HISTORY: Dysrhythmia TECHNIQUE: FINDINGS: Heart and mediastinum are normal. Lungs are clear. Diaphragm is normal. Bony thorax is inta ct. There are chest leads. IMPRESSION: Normal chest. No change.
[2022-03-13 23:57] LABS: Basophils # (A) 0.1 k/uL (0-0.2); Basophils % (A) 1 %; Eosinophils # (A) 0.1 k/uL (0-0.7); Eosinophils % (A) 1 %; HCT 39.5 % (34.0-46.0); HGB 14.3 gm/dL (11.4-16.0); Lymphocytes # (A) 2.4 k/uL (1.0-4.8); Lymphocytes % (A) 25 %; MCH 33.4 pg (25.0-35.0); MCHC 36.3 g/dL (31.0-37.0); MCV 91.8 fL (80.0-100.0); Mean Platelet Volume 7.4; Monocytes # (A) 0.3 k/uL (0-1.0); Monocytes % (A) 3 %; Neutrophils # (A) 6.6 k/uL (1.3-7.7); Neutrophils % (A) 69 %; Platelet Count 251 k/uL (150-450); WBC 9.6 k/uL (3.8-10.6)
[2022-03-14 00:06] LABS: ALT 33 U/L (4-34); AST 31 U/L (14-36); African American GFR (CKD) >90 (>60 ml/min/1.73 sqM); Albumin 4.3 g/dL (3.5-5.0); Alkaline Phosphatase 48 U/L (38-126); Anion Gap 8 mmol/L; Blood Urea Nitrogen 12 mg/dL (7-17); Calcium 9.2 mg/dL (8.4-10.2); Carbon Dioxide 22 mmol/L (22-30); Chloride 108 mmol/L (98-107); Glucose 114 mg/dL (74-99); Magnesium 1.9 mg/dL (1.6-2.3); Non-African American GFR(CKD) >90 (>60 ml/min/1.73 sqM); Potassium 3.8 mmol/L (3.5-5.1); Sodium 138 mmol/L (137-145); Total Bilirubin 0.3 mg/dL (0.2-1.3)
[2022-03-14 01:46] VITALS: BP 126/80; PULSE 82; TEMP 98.2
== END 2022-03-14 01:48 | disposition home or self-care (01) ==
LOC: EC 19:50
DX: R00.2 Palpitations (principal); F17.210 Nicotine dependence, cigarettes, uncomplicated; F41.9 Anxiety disorder, unspecified; F32.A Depression, unspecified; F17.290 Nicotine dependence, other tobacco product, uncomplicated; F12.90 Cannabis use, unspecified, uncomplicated; Z20.822 Contact with and (suspected) exposure to COVID-19
CPT/HCPCS: 36415; 71046; 80053; 81025; 83735; 84484; 85025; 85379; 87635; 93005; 99285